=== PATIENT | female | born 1985 | race African-American/Black ===

== ENCOUNTER 2020-01-01 16:14 | Emergency (ER) | payer SELFPAY ==
[~2020-01-01] VITALS: Ht 157.5 cm; Wt 64.0 kg
[2020-01-01 16:22] VITALS: BP 138/98
[2020-01-01] MEDS ORDERED: ACETAMINOPHEN 500MG TABLET PO ONE (17:15)
== END 2020-01-01 18:50 | disposition home or self-care (01) ==
LOC: ER 16:14
DX: F41.1 Generalized anxiety disorder (principal)
CPT/HCPCS: 36415; 84484; 93005; 99284

== ENCOUNTER 2022-07-28 22:54 | Emergency (ER) | payer MEDICAID, OTHER ==
[~2022-07-28] VITALS: Ht 154.9 cm; Wt 64.0 kg
[2022-07-28 23:41] LABS: BASOPHILS % 0.5 % (0.0-2.0); EOSINOPHILS % 1.8 % (0.0-5.0); HEMATOCRIT. 38.9 % (36.0-48.0); LYMPHOCYTES % 30.7 % (20.0-50.0); MEAN CORPUSCULAR HEMOGLOBIN 29.7 pg (28.0-32.0); MEAN CORPUSCULAR VOLUME 88.8 fL (81.0-99.0); MEAN PLATELET VOLUME 9.6 fl (7.4-10.4); MONOCYTES % 4.9 % (2.0-8.0); NEUTROPHILS % 62.1 % (40.0-76.0); PLATELET 211 x1000/uL (130-400); RED BLOOD CELL COUNT 4.38 mill/uL (4.2-5.4)
[2022-07-28 23:57] LABS: CHLORIDE 110 mEq/L (98-107)
[2022-07-29 00:18] LABS: CLARITY URINE CLEAR (CLEAR); COLOR URINE YELLOW (YELLOW); KETONES URINE NEGATIVE (NEGATIVE); LEUKOCYTE ESTERASE URINE TRACE (NEGATIVE); NITRITE URINE NEGATIVE (NEGATIVE); OCCULT BLOOD URINE 3+ (NEGATIVE); PROTEIN URINE NEGATIVE (NEGATIVE); SPECIFIC GRAVITY URINE 1.011 (1.005-1.030)
[2022-07-29 01:34] VITALS: BP 106/58
== END 2022-07-29 02:30 | disposition home or self-care (01) ==
LOC: ER 22:54
DX: R07.89 Other chest pain (principal); F41.9 Anxiety disorder, unspecified
CPT/HCPCS: 36415; 71045; 80053; 81003; 83880; 84484; 85025; 93005; 99285